=== PATIENT | female | born 1995 | race Caucasian/White ===

== ENCOUNTER 2017-02-04 14:42 | Emergency (ER) | payer OTHER ==
[2017-02-04 14:51] VITALS: O2SAT 97
--- NOTE | 2017-02-04 15:22 | EDPHY ---
H & P Stated Complaint: neck pain for a week, fever today at [facility], itchy last night Time Seen by Provider: 02/04/17 15:07 HPI/ROS: CHIEF COMPLAINT: Referred from [facility] for possible meningitis, neck pain, mild fever and viral syndrome HISTORY OF PRESENT ILLNESS: The patient is referred to the emergency department from [facility] for possible meningitis. The patient reports had a one-week history of neck pain. She awoke today with a mild frontal headache and fever. She denies significant cough. She does complain of mild sinus congestion and pressure. The patient denies significant past medical history. The patient denies any vomiting, diarrhea, urinary frequency or acute abdominal pain. The patient denies significant past medical history. She denies additional acute complaints. REVIEW OF SYSTEMS: A comprehensive 10 point review of systems is otherwise negative aside from elements mentioned in the history of present illness. Source: Patient Exam Limitations: No limitations - Personal History LMP (Females 10-55): 15-21 Days Ago Current Tetanus/Diphtheria Vaccine: Yes Current Tetanus Diphtheria and Acellular Pertussis (TDAP): Yes - Medical/Surgical History Hx Asthma: Yes Hx Chronic Respiratory Disease: No Hx Diabetes: No Hx Cardiac Disease: No Hx Renal Disease: No Hx Cirrhosis: No Hx Alcoholism: No Hx HIV/AIDS: No Hx Splenectomy or Spleen Trauma: No Other PMH: pmh:depression, bipolar, ptsd, asthma. psh:appy, tonsels, ankle reconst - Social History Smoking Status: Never smoked - Physical Exam Exam: General Appearance: Alert, no distress Eyes: Pupils equal and round no pallor or injection ENT, Mouth: Mucous membranes moist Respiratory: There are no retractions, lungs are clear to auscultation Cardiovascular: Regular rate and rhythm Gastrointestinal: Abdomen is soft and nontender, no masses, bowel sounds rayshawn , left CVA tenderness l Neurological: A&O, normal motor function, normal sensory exam, normal cranial nerves Skin: Warm and dry, no rashes Musculoskeletal: Neck is supple nontender, negative Kernig/Brudinski, no clinical evidence of meningitis Extremities: symmetrical, full range of motion Constitutional: Initial Vital Signs Temperature (C) 37.9 C 02/04/17 14:48 Heart Rate 113 H 02/04/17 14:48 Respiratory Rate 16 02/04/17 14:48 Blood Pressure 136/90 H 02/04/17 14:48 O2 Sat (%) 97 02/04/17 14:48 O2 Delivery Mode Room Air Allergies/Adverse Reactions: No Known Allergies Allergy (Unverified 02/04/17 14:47) Home Medications: Medication Instructions Recorded Bupropion HBr 02/04/17 Lamictal 02/04/17 Sprintec 28 Day Tablet 02/04/17 Medical Decision Making ED Course/Re-evaluation: The patient presents to the ED with a one-week history of some vague neck discomfort and a 1 day history of fever and headache. The patient is well- appearing in the emergency department. She has no meningeal symptoms per my evaluation. The patient has a normal neurologic examination. I doubt the patient has bacterial meningitis and do not feel that a lumbar puncture is indicated. The patient's urinalysis demonstrates no evidence of an infection. She does have atypical lymphocytes noted on her differential consistent with a likely underlying viral syndrome. The patient has no evidence of a vital sign abnormality. She is otherwise well- appearing. I feel it is appropriate to have her continue Tylenol and ibuprofen. The patient has been instructed to return to the ED for markedly worsening headache, fever or true neck stiffness. Differential Diagnosis: Differential diagnosis considered includes urinary tract infection, viral syndrome, influenza, meningitis - Data Points Laboratory Results: Laboratory Results 02/04/17 15:31 02/04/17 15:31 02/04/17 02/04/17 02/04/17 16:22 15:31 15:31 WBC 5.73 10^3/uL 10^3/uL (3.80-9.50) RBC 4.61 10^6/uL 10^6/uL (4.18-5.33) Hgb 14.6 g/dL g/dL (12.6-16.3) Hct 43.5 % % (38.0-47.0) MCV 94.4 fL fL (81.5-99.8) MCH 31.7 pg pg (27.9-34.1) MCHC 33.6 g/dL g/dL (32.4-36.7) RDW 11.6 % % (11.5-15.2) Plt Count 255 10^3/uL 10^3/uL (150-400) MPV 9.3 fL fL (8.7-11.7) Neut % (Auto) 47.2 % % (39.3-74.2) Lymph % (Auto) 36.6 % % (15.0-45.0) Dane % (Auto) 8.7 % % (4.5-13.0) Eos % (Auto) 5.9 % % (0.6-7.6) Baso % (Auto) 1.4 % % (0.3-1.7) Nucleat RBC Rel Count 0.0 % % (0.0-0.2) Absolute Neuts (auto) 2.70 10^3/uL 10^3/uL (1.70-6.50) Absolute Lymphs (auto) 2.10 10^3/uL 10^3/uL (1.00-3.00) Absolute Monos (auto) 0.50 10^3/uL 10^3/uL (0.30-0.80) Absolute Eos (auto) 0.34 10^3/uL 10^3/uL (0.03-0.40) Absolute Basos (auto) 0.08 10^3/uL 10^3/uL (0.02-0.10) Absolute Nucleated RBC 0.00 10^3/uL 10^3/uL (0-0.01) Immature Gran % 0.2 % % (0.0-1.1) Seg Neutrophils % 45 % % Band Neutrophils % 7 % % Lymphocytes % 37 % % Monocytes % 10 % % Eosinophils % 1 % % Immature Gran # 0.01 10^3/uL 10^3/uL (0.00-0.10) Absolute Seg Neuts 2.58 10^/uL 10^/uL (1.70-6.50) Absolute Band Neuts 0.40 10^3/uL 10^3/uL (0.00-0.70) Absolute Lymphocytes 2.12 10^3/uL 10^3/uL (1.00-3.00) Absolute Monocytes 0.57 10^3/uL 10^3/uL (0.30-0.80) Absolute Eosinophils 0.06 10^3/uL 10^3/uL (0.03-0.40) RBC/WBC/PLT Morphology NORMAL (NORMAL) Atypical Lymphocytes 2+ H Platelet Estimate ADEQUATE (ADEQ) Smear Review By Pending Sodium Potassium Chloride Carbon Dioxide Anion Gap BUN Creatinine Estimated GFR Glucose Calcium Urine Color PALE YELLOW Urine Appearance CLEAR Urine pH 6.0 (5.0-7.5) Ur Specific [place] 1.002 (1.002-1.030) Urine Protein NEGATIVE (NEGATIVE) Urine Ketones NEGATIVE (NEGATIVE) Urine Blood 1+ H (NEGATIVE) Urine Nitrate NEGATIVE (NEGATIVE) Urine Bilirubin NEGATIVE (NEGATIVE) Urine Urobilinogen NEGATIVE EU EU (0.2-1.0) Ur Leukocyte Esterase NEGATIVE (NEGATIVE) Urine RBC 15-25 /hpf H /hpf (0-3) Urine WBC NONE SEEN /hpf /hpf (0-3) Ur Epithelial Cells TRACE /lpf /lpf (NONE-1+) Urine Bacteria 1+ /hpf H /hpf (NONE SEEN) Urine Mucus TRACE /lpf /lpf (NONE-1+) Urine Glucose NEGATIVE (NEGATIVE) Nasal Influenza A PCR NEGATIVE FOR FLU A (NEGATIVE) Nasal Influenza B PCR NEGATIVE FOR FLU B (NEGATIVE) 02/04/17 15:31 WBC RBC Hgb Hct MCV MCH MCHC RDW Plt Count MPV Neut % (Auto) Lymph % (Auto) Dane % (Auto) Eos % (Auto) Baso % (Auto) Nucleat RBC Rel Count Absolute Neuts (auto) Absolute Lymphs (auto) Absolute Monos (auto) Absolute Eos (auto) Absolute Basos (auto) Absolute Nucleated RBC Immature Gran % Seg Neutrophils % Band Neutrophils % Lymphocytes % Monocytes % Eosinophils % Immature Gran # Absolute Seg Neuts Absolute Band Neuts Absolute Lymphocytes Absolute Monocytes Absolute Eosinophils RBC/WBC/PLT Morphology Atypical Lymphocytes Platelet Estimate Smear Review By Sodium 140 mEq/L mEq/L (134-144) Potassium 4.0 mEq/L mEq/L (3.5-5.2) Chloride 105 mEq/L mEq/L (97-110) Carbon Dioxide 22 mEq/l mEq/l (22-31) Anion Gap 13 mEq/L mEq/L (8-16) BUN 3 mg/dL L mg/dL (7-23) Creatinine 0.8 mg/dL mg/dL (0.6-1.0) Estimated GFR > 60 Glucose 94 mg/dL mg/dL (70-100) Calcium 9.4 mg/dL mg/dL (8.5-10.4) Urine Color Urine Appearance Urine pH Ur Specific [place] Urine Protein Urine Ketones Urine Blood Urine Nitrate Urine Bilirubin Urine Urobilinogen Ur Leukocyte Esterase Urine RBC Urine WBC Ur Epithelial Cells Urine Bacteria Urine Mucus Urine Glucose Nasal Influenza A PCR Nasal Influenza B PCR Departure - Departure Disposition: Home, Routine, Self-Care Clinical Impression: Viral syndrome Condition: Good Instructions: Viral Syndrome (ED) Additional Instructions: 1. Tylenol and ibuprofen as needed for pain. 2. Please return to the emergency department for worsening headache, fever, inability to flex or extend your neck or for the development of any acute neurologic symptoms. 3. Follow up with the [facility] as needed.
[2017-02-04 15:50] LABS: % IMMATURE GRANULYOCYTES 0.2 % (0.0-1.1); ABSOLUTE IMMATURE GRANULOCYTES 0.01 10^3/uL (0.00-0.10); ADD DIFF? NO; ADD MORPH? NO; ADD SCAN? YES; FRAGMENT RBC FLAG 0 (0-99); HEMATOCRIT 43.5 % (38.0-47.0); HEMOGLOBIN 14.6 g/dL (12.6-16.3); LEFT SHIFT FLG 0 (0-99); LIPEMIA HEMOLYSIS FLAG 80 (0-99); MEAN CELL HEMOGLOBIN 31.7 pg (27.9-34.1); MEAN CELL HEMOGLOBIN CONCENTR. 33.6 g/dL (32.4-36.7); MEAN CELL VOLUME 94.4 fL (81.5-99.8); MEAN PLATELET VOLUME 9.3 fL (8.7-11.7); PLATELET CLUMPS FLAG 0 (0-99); PLATELET COUNT 255 10^3/uL (150-400); RED BLOOD CELL COUNT 4.61 10^6/uL (4.18-5.33); RED CELL DISTRIBUTION WIDTH 11.6 % (11.5-15.2)
[2017-02-04 15:51] LABS: ATYPICAL LYMPHOCYTE FLAG 300 (0-99)
[2017-02-04 15:56] LABS: ANION GAP 13 mEq/L (8-16); CALCIUM 9.4 mg/dL (8.5-10.4); CARBON DIOXIDE 22 mEq/l (22-31); CHLORIDE 105 mEq/L (97-110); CREATININE 0.8 mg/dL (0.6-1.0); GLOMERULAR FILTRATION RATE > 60; GLUCOSE 94 mg/dL (70-100); SODIUM 140 mEq/L (134-144)
[2017-02-04 16:11] VITALS: BP 110/72; PULSE 95; RESP 15; TEMP 99
[2017-02-04 16:25] LABS: SCAN POSITIVE
[2017-02-04 16:29] LABS: PLATELET ESTIMATE ADEQUATE (ADEQ)
[2017-02-04 16:36] LABS: COLOR PALE YELLOW; LEUKOCYTE ESTERASE,URINE NEGATIVE (NEGATIVE); NITRITE,URINE NEGATIVE (NEGATIVE)
[2017-02-04 16:40] LABS: BACTERIA 1+ /hpf (NONE SEEN); MUCUS TRACE /lpf (NONE-1+); RBC,URINE 15-25 /hpf (0-3)
[2017-02-04 16:41] LABS: WBC,URINE NONE SEEN /hpf (0-3)
== END 2017-02-04 17:08 | disposition home or self-care (01) ==
DX: B34.9 Viral infection, unspecified (principal); J45.909 Unspecified asthma, uncomplicated

== ENCOUNTER 2017-02-07 10:31 | Inpatient (IN) | payer OTHER ==
[2017-02-07] MEDS ORDERED: ACETAMINOPHEN 500 MG TAB ONE (11:37)
[2017-02-07] MEDS ORDERED: ACETAMINOPHEN 160 MG/5 ML UDCUP PO ONE (11:43)
[2017-02-07] MEDS ORDERED: NS 1,000 ML IV ONE (11:44)
[2017-02-07] MEDS ORDERED: ACETAMINOPHEN 500 MG TAB PO ONE (11:45)
[2017-02-07 12:01] LABS: % IMMATURE GRANULYOCYTES 0.6 % (0.0-1.1); ADD DIFF? NO; ADD MORPH? NO; ADD SCAN? YES; FRAGMENT RBC FLAG 0 (0-99); LEFT SHIFT FLG 0 (0-99); LIPEMIA HEMOLYSIS FLAG 90 (0-99); MEAN CELL HEMOGLOBIN 32.6 pg (27.9-34.1); MEAN CELL VOLUME 93.1 fL (81.5-99.8); MEAN PLATELET VOLUME 9.2 fL (8.7-11.7); PLATELET CLUMPS FLAG 10 (0-99); PLATELET COUNT 267 10^3/uL (150-400); RED BLOOD CELL COUNT 4.51 10^6/uL (4.18-5.33); RED CELL DISTRIBUTION WIDTH 11.7 % (11.5-15.2)
[2017-02-07 12:02] LABS: ATYPICAL LYMPHOCYTE FLAG 300 (0-99)
[2017-02-07 12:05] LABS: HEMOGLOBIN 14.7 g/dL (12.6-16.3)
[2017-02-07 12:07] LABS: SCAN POSITIVE
--- NOTE | 2017-02-07 12:11 | EDPHY ---
HPI/HX/ROS/PE/MDM Narrative: CHIEF COMPLAINT: Fever, headache, rash. HISTORY OF PRESENT ILLNESS: This patient is a 21 year old female complaining of headache, neck pain, sore throat, and generalized rash worsening since Friday. Friday morning, she woke with a fever of 102 degrees and was evaluated at the [facility]. She was then evaluated here 02/04/17 for possible meningitis after referral from [facility]. That evening, she began to develop a generalized rash. Last night, she felt nauseous but was unable to vomit. She has been taking ibuprofen for fever, but has had ongoing headache, sore throat, neck pain, and fatigue. She denies any new medications or exposure to any new substances. No recent travel outside of [place] or to the [facility]. She has taken ibuprofen in the past without any reaction. Her primary complaint today is her worsening generalized rash, which spreads over her entire body. She denies chest pain, shortness of breath, palpitations, vomiting, diarrhea, or urinary complaints. REVIEW OF SYSTEMS: Aside from elements discussed in the HPI, a comprehensive 10-point review of systems was reviewed and is negative. PAST MEDICAL HISTORY: Depression (Buproprion), Bipolar (Lamictal), PTSD, Asthma , Appendectomy, Tonsillectomy, Ankle reconstruction SOCIAL HISTORY: Student at [employer]. Single. Nonsmoker. VITAL SIGNS: Reviewed by me GENERAL: Flushed. Well-developed, well-nourished, resting comfortably in no respiratory distress. HEENT: Atraumatic. Eyes: No icterus, no injection. Mouth: erythema, blistering, and lesions on inner lip and palate. moist mucous membranes. Neck: supple with no adenopathy. LUNGS: Clear to auscultation bilaterally, no wheezes, rhonchi or rales. CARDIAC: Regular tachycardia, no rubs, murmurs or gallops. ABDOMEN: Soft, nontender, nondistended, bowel sounds normal. BACK: No CVA tenderness. EXTREMITIES: No trauma. No edema. Range of motion is normal throughout. NEURO: Alert and oriented, grossly nonfocal. SKIN: Generalized urticarial rash. Warm and dry. PSYCHIATRIC: Normal mentation, no agitation. Portions of this note were transcribed by a medical geneticist. I personally performed a history, physical exam, medical decision making, and confirmed accuracy of information the transcribed note. ED Course: 21 year old female presents with fever, severe headache, and generalized urticarial rash. Procedure: Lumbar puncture. Indication: Fever, headache, rash After verbal informed consent from patient explaining the risks including infection, bleeding, and neurologic damage, a lumbar puncture was performed with 22 gauge needle after the patient was prepped and draped in the usual fashion. The back was anesthetized with 1% lidocaine. Approximately 4 cc of clear fluid was obtained. Opening pressure was not obtained. There were no complications. The procedure was performed by myself, Dr. Calero 13:47 Dr. Gutierrez, infectious disease specialist, at bedside to consult. 13:[address]. [address]. Gutierrez suspects viral syndrome over 14:19 Spoke with hospitalist service. - Data Points Laboratory Results: Laboratory Results 02/07/17 11:52 02/07/17 11:52 02/07/17 02/07/17 02/07/17 13:18 13:05 11:52 WBC RBC Hgb Hct MCV MCH MCHC RDW Plt Count MPV Neut % (Auto) Lymph % (Auto) Starke % (Auto) Eos % (Auto) Baso % (Auto) Nucleat RBC Rel Count Absolute Neuts (auto) Absolute Lymphs (auto) Absolute Monos (auto) Absolute Eos (auto) Absolute Basos (auto) Absolute Nucleated RBC Immature Gran % Seg Neutrophils % Band Neutrophils % Lymphocytes % Monocytes % Eosinophils % Immature Gran # Absolute Seg Neuts Absolute Band Neuts Absolute Lymphocytes Absolute Monocytes Absolute Eosinophils RBC/WBC/PLT Morphology Atypical Lymphocytes Platelet Estimate Smear Review By Sodium Potassium Chloride Carbon Dioxide Anion Gap BUN Creatinine Estimated GFR Glucose Calcium Total Bilirubin Pending Conjugated Bilirubin Pending Unconjugated Bilirubin Pending AST Pending ALT Pending Alkaline Phosphatase Pending Creatine Kinase Total Protein Pending Albumin Pending Beta HCG, Qual CSF Tube Number 4 1 CSF Appearance CLEAR CLEAR (CLEAR) (CLEAR) CSF Color COLORLESS COLORLESS (COLORLESS) (COLORLESS) CSF Supernatant Not Reported Not Reported CSF WBC 0 /mm3 /mm3 2 /mm3 /mm3 (0-5) (0-5) CSF RBC 10 /mm3 H /mm3 205 /mm3 H /mm3 (0-0) (0-0) CSF Glucose 44 mg/dL L mg/dL (50-75) CSF Total Protein 27 mg/dL mg/dL (12-60) Syphilis IgG Antibody CMV IgG Ab CMV IgM Ab EBV Capsid Ag IgG Ab EBV Capsid Ag IgM Ab EBV Nuclear Antigen Ab EBV Interpretation Monoscreen HIV 1&2 Antibody Group A Strep Screen 02/07/17 02/07/17 02/07/17 11:52 11:52 11:52 WBC RBC Hgb Hct MCV MCH MCHC RDW Plt Count MPV Neut % (Auto) Lymph % (Auto) Starke % (Auto) Eos % (Auto) Baso % (Auto) Nucleat RBC Rel Count Absolute Neuts (auto) Absolute Lymphs (auto) Absolute Monos (auto) Absolute Eos (auto) Absolute Basos (auto) Absolute Nucleated RBC Immature Gran % Seg Neutrophils % Band Neutrophils % Lymphocytes % Monocytes % Eosinophils % Immature Gran # Absolute Seg Neuts Absolute Band Neuts Absolute Lymphocytes Absolute Monocytes Absolute Eosinophils RBC/WBC/PLT Morphology Atypical Lymphocytes Platelet Estimate Smear Review By Sodium Potassium Chloride Carbon Dioxide Anion Gap BUN Creatinine Estimated GFR Glucose Calcium Total Bilirubin Conjugated Bilirubin Unconjugated Bilirubin AST ALT Alkaline Phosphatase Creatine Kinase Total Protein Albumin Beta HCG, Qual NEGATIVE CSF Tube Number CSF Appearance CSF Color CSF Supernatant CSF WBC CSF RBC CSF Glucose CSF Total Protein Syphilis IgG Antibody Pending CMV IgG Ab Pending CMV IgM Ab Pending EBV Capsid Ag IgG Ab Pending EBV Capsid Ag IgM Ab Pending EBV Nuclear Antigen Ab Pending EBV Interpretation Pending Monoscreen NEGATIVE (NEGATIVE) HIV 1&2 Antibody Pending Group A Strep Screen 02/07/17 02/07/17 02/07/17 11:52 11:52 11:35 WBC 16.19 10^3/uL H D 10^3/uL (3.80-9.50) RBC 4.51 10^6/uL 10^6/uL (4.18-5.33) Hgb 14.7 g/dL g/dL (12.6-16.3) Hct 42.0 % % (38.0-47.0) MCV 93.1 fL fL (81.5-99.8) MCH 32.6 pg pg (27.9-34.1) MCHC 35.0 g/dL g/dL (32.4-36.7) RDW 11.7 % % (11.5-15.2) Plt Count 267 10^3/uL 10^3/uL (150-400) MPV 9.2 fL fL (8.7-11.7) Neut % (Auto) 27.9 % L % (39.3-74.2) Lymph % (Auto) 54.7 % H % (15.0-45.0) Starke % (Auto) 11.4 % % (4.5-13.0) Eos % (Auto) 4.0 % % (0.6-7.6) Baso % (Auto) 1.4 % % (0.3-1.7) Nucleat RBC Rel Count 0.0 % % (0.0-0.2) Absolute Neuts (auto) 4.52 10^3/uL 10^3/uL (1.70-6.50) Absolute Lymphs (auto) 8.86 10^3/uL H 10^3/uL (1.00-3.00) Absolute Monos (auto) 1.85 10^3/uL H 10^3/uL (0.30-0.80) Absolute Eos (auto) 0.64 10^3/uL H 10^3/uL (0.03-0.40) Absolute Basos (auto) 0.22 10^3/uL H 10^3/uL (0.02-0.10) Absolute Nucleated RBC 0.00 10^3/uL 10^3/uL (0-0.01) Immature Gran % 0.6 % % (0.0-1.1) Seg Neutrophils % 29 % % Band Neutrophils % 4 % % Lymphocytes % 63 % % Monocytes % 2 % % Eosinophils % 2 % % Immature Gran # 0.10 10^3/uL 10^3/uL (0.00-0.10) Absolute Seg Neuts 4.70 10^/uL 10^/uL (1.70-6.50) Absolute Band Neuts 0.65 10^3/uL 10^3/uL (0.00-0.70) Absolute Lymphocytes 10.20 10^3/uL H 10^3/uL (1.00-3.00) Absolute Monocytes 0.32 10^3/uL 10^3/uL (0.30-0.80) Absolute Eosinophils 0.32 10^3/uL 10^3/uL (0.03-0.40) RBC/WBC/PLT Morphology NORMAL (NORMAL) Atypical Lymphocytes 2+ H Platelet Estimate ADEQUATE (ADEQ) Smear Review By Pending Sodium 139 mEq/L mEq/L (134-144) Potassium 3.8 mEq/L mEq/L (3.5-5.2) Chloride 104 mEq/L mEq/L (97-110) Carbon Dioxide 23 mEq/l mEq/l (22-31) Anion Gap 12 mEq/L mEq/L (8-16) BUN 6 mg/dL L mg/dL (7-23) Creatinine 0.8 mg/dL mg/dL (0.6-1.0) Estimated GFR > 60 Glucose 80 mg/dL mg/dL (70-100) Calcium 8.7 mg/dL mg/dL (8.5-10.4) Total Bilirubin Conjugated Bilirubin Unconjugated Bilirubin AST ALT Alkaline Phosphatase Creatine Kinase 53 IU/L IU/L (0-156) Total Protein Albumin Beta HCG, Qual CSF Tube Number CSF Appearance CSF Color CSF Supernatant CSF WBC CSF RBC CSF Glucose CSF Total Protein Syphilis IgG Antibody CMV IgG Ab CMV IgM Ab EBV Capsid Ag IgG Ab EBV Capsid Ag IgM Ab EBV Nuclear Antigen Ab EBV Interpretation Monoscreen HIV 1&2 Antibody Group A Strep Screen NEGATIVE (NEGATIVE) Medications Given: Discontinued Medications Acetaminophen (Tylenol 160mg/5ml Oral Liquid) 1,000 mg PO EDNOW ONE Stop: 02/07/17 11:44 Last Admin: 02/07/17 11:45 Dose: Not Given Acetaminophen (Tylenol) 1,000 mg PO EDNOW ONE Stop: 02/07/17 11:46 Last Admin: 02/07/17 11:46 Dose: 1,000 mg Diphenhydramine HCl (Benadryl) 25 mg PO EDNOW ONE Stop: 02/07/17 12:25 Last Admin: 02/07/17 12:35 Dose: 25 mg Hydromorphone HCl (Dilaudid) 0.5 mg IVP EDNOW ONE Stop: 02/07/17 12:17 Last Admin: 02/07/17 12:35 Dose: 0.5 mg Sodium Chloride (Ns) 1,000 mls @ 0 mls/hr IV ONCE ONE; Wide Open PRN Reason: Protocol Stop: 02/07/17 11:45 Last Admin: 02/07/17 11:44 Dose: 1,000 mls Microbiology Results: MICROBIOLOGY 02/07/17 13:05 Cerebral Spinal Fluid Gram Stain - Final General Time Seen by Provider: 02/07/17 11:27 Initial Vital Signs: Initial Vital Signs Temperature (C) 39.3 C H 02/07/17 10:49 Heart Rate 119 H 02/07/17 10:49 Respiratory Rate 17 02/07/17 10:49 Blood Pressure 127/80 H 02/07/17 10:49 O2 Sat (%) 94 02/07/17 10:49 O2 Delivery Mode Room Air Allergies/Adverse Reactions: No Known Allergies Allergy (Unverified 02/04/17 14:47) Home Medications: Medication Instructions Recorded Bupropion HBr 02/04/17 Lamictal 02/04/17 Sprintec 28 Day Tablet 02/04/17 Departure - Departure
[2017-02-07] MEDS ORDERED: HYDROmorphONE/DILAUDID 1 MG/ML INJ IVP ONE (12:16)
[2017-02-07 12:19] LABS: ANION GAP 12 mEq/L (8-16); CALCIUM 8.7 mg/dL (8.5-10.4); CARBON DIOXIDE 23 mEq/l (22-31); CHLORIDE 104 mEq/L (97-110); CREATININE 0.8 mg/dL (0.6-1.0); GLOMERULAR FILTRATION RATE > 60; GLUCOSE 80 mg/dL (70-100); POTASSIUM 3.8 mEq/L (3.5-5.2); SODIUM 139 mEq/L (134-144)
[2017-02-07] MEDS ORDERED: diphenhydrAMINE 25 MG CAP PO ONE (12:24)
[2017-02-07 12:26] LABS: BHCG-QUALITATIVE NEGATIVE; MONO TEST NEGATIVE (NEGATIVE)
[2017-02-07 12:43] LABS: PLATELET ESTIMATE ADEQUATE (ADEQ)
[2017-02-07 13:32] LABS: CSF APPEARANCE CLEAR (CLEAR); CSF COLOR COLORLESS (COLORLESS)
[2017-02-07 13:32] LABS: CSF APPEARANCE CLEAR (CLEAR); CSF COLOR COLORLESS (COLORLESS); PROTEIN, CSF 27 mg/dL (12-60)
[2017-02-07 13:42] LABS: WBC, CSF 2 /mm3 (0-5)
[2017-02-07 13:50] LABS: WBC, CSF 0 /mm3 (0-5)
[2017-02-07 14:19] LABS: ALBUMIN 3.6 g/dL (3.5-5.0); BILIRUBIN,TOTAL 0.9 mg/dL (0.1-1.4); BILIRUBIN-CONJUGATED 0.7 mg/dL (0.0-0.5); BILIRUBIN-UNCONJUGATED 0.2 mg/dL (0.0-1.1); TOTAL PROTEIN 5.8 g/dL (6.3-8.2)
[2017-02-07] MEDS ORDERED: ALBUTEROL 3 ML DEYVIAL IH PRN (15:02)
[2017-02-07] MEDS ORDERED: oxyCODONE IR 5 MG TAB PO PRN (15:02)
--- NOTE | 2017-02-07 15:08 | PDGENHP ---
History and Physical - Chief Complaint Rash, Fever, PALACIOS - History of Present Illness 21 year old female p/w headache, neck pain, sore throat, and generalized rash worsening since Friday. Friday morning, she woke with a fever of 102 degrees and was evaluated at the [employer] student [facility]. She was then evaluated here 02/04/17 for possible meningitis after referral from [facility]. That evening, she began to develop a generalized rash. Last night, she felt nauseous but was unable to vomit. She has been taking ibuprofen for fever, but has had ongoing headache, sore throat, neck pain, and fatigue. She denies any new medications or exposure to any new substances. No recent travel outside of [place] or to the [facility]. She has taken ibuprofen in the past without any reaction. Her primary complaint today is her worsening generalized rash, which spreads over her entire body. She denies chest pain, shortness of breath, palpitations, vomiting, diarrhea, or urinary complaints. She started Lamictal 5 weeks ago. There was concern for SJS and ID was consulted. At this time, they believe that the etiology is likely a viral syndrome. She is being admitted for further w/u and management. A LP in the E.D. is negative. Cultures pending. She is hemodynamically stable. She has Leukocytosis PAST MEDICAL /SURGICAL HISTORY: Depression (Buproprion), Bipolar (Lamictal), PTSD, Asthma, Appendectomy, Tonsillectomy, Ankle reconstruction SOCIAL HISTORY: Student at [employer]. Single. Nonsmoker. FMX: AL History Information - Allergies/Home Medication List Allergies/Adverse Reactions: No Known Allergies Allergy (Unverified 02/04/17 14:47) Home Medications: Norgestimate-Ethinyl Estradiol [Sprintec] 1 each PO DAILY 02/04/17 [Last Taken Unknown] buPROPion SR [Wellbutrin 150mg SR (*)] 150 mg PO BID 02/04/17 [Last Taken ] lamoTRIgine [LamICTAL 100 MG (*)] 150 mg PO HS 02/04/17 [Last Taken 02/06/17] Albuterol [Proventil Inhaler HFA (*)] 1 - 2 puffs IH DAILY PRN 02/07/17 [Last Taken 3 Days Ago ~02/04/17] I have personally reviewed and updated: medical history, social history, surgical history - Social History Smoking Status: Never smoked Review of Systems Review of Systems: ROS: 10pt was reviewed & negative except for what was stated in HPI & below Physical Exam Physical Exam: Temp Pulse Resp BP Pulse Ox 39.3 C H 100 16 110/79 98 02/07/17 10:49 02/07/17 14:00 02/07/17 14:00 02/07/17 12:00 02/07/17 14:00 Constitutional: no apparent distress Eyes: PERRL Ears, Nose, Mouth, Throat: moist mucous membranes, hearing normal, oral ulcer ( erythema, blistering, and lesions on inner lip and palate. moist mucous membranes) Cardiovascular: regular rate and rhythym, no murmur, rub, or gallop, No edema Respiratory: no respiratory distress, no rales or rhonchi, clear to auscultation Skin: erythema, rash (ERYTHEMATOUS RASH INVOLVING BACK, TRUNK, THIGHS) Musculoskeletal: full muscle strength Neurologic: AAOx3 Psychiatric: interacting appropriately, not anxious, not encephalopathic Lab Data & Imaging Review 02/07/17 11:52 02/07/17 11:52 WBC 16.19 10^3/uL (3.80-9.50) H D 02/07/17 11:52 RBC 4.51 10^6/uL (4.18-5.33) 02/07/17 11:52 Hgb 14.7 g/dL (12.6-16.3) 02/07/17 11:52 Hct 42.0 % (38.0-47.0) 02/07/17 11:52 MCV 93.1 fL (81.5-99.8) 02/07/17 11:52 MCH 32.6 pg (27.9-34.1) 02/07/17 11:52 MCHC 35.0 g/dL (32.4-36.7) 02/07/17 11:52 RDW 11.7 % (11.5-15.2) 02/07/17 11:52 Plt Count 267 10^3/uL (150-400) 02/07/17 11:52 MPV 9.2 fL (8.7-11.7) 02/07/17 11:52 Neut % (Auto) 27.9 % (39.3-74.2) L 02/07/17 11:52 Lymph % (Auto) 54.7 % (15.0-45.0) H 02/07/17 11:52 Ramsey % (Auto) 11.4 % (4.5-13.0) 02/07/17 11:52 Eos % (Auto) 4.0 % (0.6-7.6) 02/07/17 11:52 Baso % (Auto) 1.4 % (0.3-1.7) 02/07/17 11:52 Nucleat RBC Rel Count 0.0 % (0.0-0.2) 02/07/17 11:52 Absolute Neuts (auto) 4.52 10^3/uL (1.70-6.50) 02/07/17 11:52 Absolute Lymphs (auto) 8.86 10^3/uL (1.00-3.00) H 02/07/17 11:52 Absolute Monos (auto) 1.85 10^3/uL (0.30-0.80) H 02/07/17 11:52 Absolute Eos (auto) 0.64 10^3/uL (0.03-0.40) H 02/07/17 11:52 Absolute Basos (auto) 0.22 10^3/uL (0.02-0.10) H 02/07/17 11:52 Absolute Nucleated RBC 0.00 10^3/uL (0-0.01) 02/07/17 11:52 Immature Gran % 0.6 % (0.0-1.1) 02/07/17 11:52 Seg Neutrophils % 29 % 02/07/17 11:52 Band Neutrophils % 4 % 02/07/17 11:52 Lymphocytes % 63 % 02/07/17 11:52 Monocytes % 2 % 02/07/17 11:52 Eosinophils % 2 % 02/07/17 11:52 Immature Gran # 0.10 10^3/uL (0.00-0.10) 02/07/17 11:52 Absolute Seg Neuts 4.70 10^/uL (1.70-6.50) 02/07/17 11:52 Absolute Band Neuts 0.65 10^3/uL (0.00-0.70) 02/07/17 11:52 Absolute Lymphocytes 10.20 10^3/uL (1.00-3.00) H 02/07/17 11:52 Absolute Monocytes 0.32 10^3/uL (0.30-0.80) 02/07/17 11:52 Absolute Eosinophils 0.32 10^3/uL (0.03-0.40) 02/07/17 11:52 RBC/WBC/PLT Morphology NORMAL (NORMAL) 02/07/17 11:52 Atypical Lymphocytes 2+ H 02/07/17 11:52 Platelet Estimate ADEQUATE (ADEQ) 02/07/17 11:52 Sodium 139 mEq/L (134-144) 02/07/17 11:52 Potassium 3.8 mEq/L (3.5-5.2) 02/07/17 11:52 Chloride 104 mEq/L (97-110) 02/07/17 11:52 Carbon Dioxide 23 mEq/l (22-31) 02/07/17 11:52 Anion Gap 12 mEq/L (8-16) 02/07/17 11:52 BUN 6 mg/dL (7-23) L 02/07/17 11:52 Creatinine 0.8 mg/dL (0.6-1.0) 02/07/17 11:52 Estimated GFR > 60 02/07/17 11:52 Glucose 80 mg/dL (70-100) 02/07/17 11:52 Calcium 8.7 mg/dL (8.5-10.4) 02/07/17 11:52 Total Bilirubin 0.9 mg/dL (0.1-1.4) 02/07/17 11:52 Conjugated Bilirubin 0.7 mg/dL (0.0-0.5) H 02/07/17 11:52 Unconjugated Bilirubin 0.2 mg/dL (0.0-1.1) 02/07/17 11:52 AST 121 IU/L (14-46) H 02/07/17 11:52 ALT 109 IU/L (9-52) H 02/07/17 11:52 Alkaline Phosphatase 223 IU/L (38-126) H 02/07/17 11:52 Creatine Kinase 53 IU/L (0-156) 02/07/17 11:52 Total Protein 5.8 g/dL (6.3-8.2) L 02/07/17 11:52 Albumin 3.6 g/dL (3.5-5.0) 02/07/17 11:52 Beta HCG, Qual NEGATIVE 02/07/17 11:52 CSF Tube Number 4 02/07/17 13:18 CSF Appearance CLEAR (CLEAR) 02/07/17 13:18 CSF Color COLORLESS (COLORLESS) 02/07/17 13:18 CSF Supernatant Not Reported 02/07/17 13:18 CSF WBC 0 /mm3 (0-5) 02/07/17 13:18 CSF RBC 10 /mm3 (0-0) H 02/07/17 13:18 CSF Glucose 44 mg/dL (50-75) L 02/07/17 13:05 CSF Total Protein 27 mg/dL (12-60) 02/07/17 13:05 Monoscreen NEGATIVE (NEGATIVE) 02/07/17 11:52 Group A Strep Screen NEGATIVE (NEGATIVE) 02/07/17 11:35 Assessment & Plan Assessment: #Leukocytosis #Rash #Fever #Mouth Ulcers #Transaminitis #?viral syndrome vs drug reaction vs other Plan admit hold lamictal repeat labs in am. f/u cultures, viral studies symptom management ID is following: no abx at this time. No steroids at this time SCD's Full Code
[2017-02-07] MEDS: NS 1,000 ML IV SCH (15:30)
[2017-02-07] MEDS: ONDANSETRON DISINTEGRATING 4 MG TAB PO PRN (15:40)
--- NOTE | 2017-02-07 16:06 | ASMTCMCOM ---
CM Note CM Note Notes: Pt has been admitted with fever, rash, PALACIOS, neck pain. ID following. Cultures are pending. Pt is a [employer] student and has a hx of Bipolar d/o, PTSD, depression. Currently not on any ABX. Anticipate d/c with no CM needs but CM will continue to follow for any unanticipated needs. Date Signed: 02/07/2017 04:05 PM Electronically Signed By:TOSHIA Frye
--- NOTE | 2017-02-07 19:05 | PDMN ---
Medical Necessity Medical necessity: C/M review: Patient meets INPT criteria under [facility] M-160 Sepsis and other febrile illness without focal infection; Acute and persistently worsening febrile illness possible viral syndrome, drug reaction or unclear etiology, 39.3 T max, generalized rash, headache, neck pain, mouth ulcers, leukocytosis, WBC 16.19, Creatine kinase 5.8, transaminitis, AST 121, ALT 109, Alk phos 223, requiring Infectious disease consult, ongoing hold IV fluids, monitoring and workup, comorbid 02/04/2017 ED visit for possible meningitis. anticipates > 2 MN LOS for ongoing med nec for eval and TX of above.
[2017-02-07] MEDS: ACETAMINOPHEN 325 MG TAB PO PRN (19:15)
[2017-02-07] MEDS: diphenhydrAMINE 25 MG CAP PO PRN (19:16)
--- NOTE | 2017-02-07 20:29 | GCON ---
[f rep st] CONSULTATION INFECTIOUS DISEASE CONSULTATION. PHYSICIAN REQUESTING CONSULTATION: Liz Calero M.D. REASON FOR CONSULTATION: Rash and fever and headache. HISTORY OF PRESENT ILLNESS: A 21-year-old woman with a past medical history of bipolar disorder who presents to the emergency room for the 2nd time with complaints of headache and fever and subsequently developed a rash in the interim on 02/06/2017. She was last evaluated in our emergency room 02/04/2017 for possible meningitis, but lumbar puncture was not performed as she was suspected to simply have a viral syndrome. She re-presented today after the development of her rash. She has been taking ibuprofen for her fever, but not much more than she typically takes. She also has a headache and sore throat, a very mildly sore neck, but no stiffness. She denies any oral or genital pain. She is sexually active with unprotected sex with her boyfriend. She denies any recent travel or exposure to arthropods. Interestingly, patient started Lamictal in mid-December and there was initial concern for Cohn-Faisal syndrome in the emergency room. In the emergency room, a lumbar puncture was performed which showed no evidence of meningitis, with a negative WBC, slightly low glucose and a normal protein. It was a traumatic tap. Blood pressure was within normal limits throughout ER visit, and she had mild tachycardia and a T-max of 39.3. PAST MEDICAL AND SURGICAL HISTORY: She has depression and bipolar type 2 and is managed on bupropion and Lamictal. She has PTSD, asthma, appendectomy, tonsillectomy, and ankle reconstruction. History of "mono" in the past. 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 Her family currently lives in [place]. FAMILY HISTORY: Reviewed and noncontributory. ALLERGIES: NKDA. MEDICATIONS: She is on Sprintec 1 tablet daily, Wellbutrin 150 slow release twice daily, Lamictal 150 mg at bedtime, albuterol as needed. SOCIAL HISTORY: She is a nonsmoker. No alcohol. She has a boyfriend. They are sexually active. She is on control pills. She has never had STD testing in the past. REVIEW OF SYSTEMS: A complete 10-point review of systems was performed and is negative except as mentioned in the HPI. PHYSICAL EXAMINATION: VITAL SIGNS: T-max 39.3, pulse 100, respiratory rate 16 , blood pressure 110/79, saturations 98% on room air. GENERAL: This is a pleasant young woman sitting up in bed with fluent speech. No acute distress. HEENT: Patient with reactive pupils bilaterally. No splinter hemorrhages or Janeway lesions. No conjunctival lesions around the eyes. Oropharynx: She has moist mucous membranes. She has a small ulcer on her inner lip and petechial eruption on her palate. Moist mucous membranes with good dentition. CARDIOVASCULAR: She is mildly tachycardic. Regular rate. No murmur. CHEST: Clear to auscultation bilaterally. SKIN: The patient has a diffuse maculopapular rash most prominent on her trunk, but also involving her arms and legs that it is blanching and nonpruritic. ABDOMEN: Soft, nontender. Bowel sounds are present. Spleen was not palpable. NEUROLOGIC: Alert, oriented x4. Moving all 4 extremities equally. PSYCHIATRIC: She is interacting appropriately. Alert and oriented x4. LABORATORY: CSF tube 4: 0 WBCs, 10 RBCs, glucose 44, total protein 27. White count 16,000, 27% neutrophils, 54% lymphocytes. Creatinine is 0.8, AST 121, ALT 109, alkaline phosphatase 223, total protein 2.8. Beta HCG negative. Albumin 3.6. Rhea screen negative. HIV screen negative. Group A strep screen negative. No imaging was performed. ASSESSMENT AND PLAN: This is a 21-year-old woman who presents with fever, headache, macular papular eruption with some petechiae on her palate with associated normal lumbar puncture and lymphocytosis and mild hepatitis, most suggestive of viral syndrome, consistent with mono-like illness. Would consider EBV, CMV, enterovirus. Less likely could consider primary HIV, although if highly suspicious would need to send PCR and I am not at this point. 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 Do not feel the character of her rash and minor oral lesions are consistent with Cohn-Faisal syndrome. Nonetheless, would hold Lamictal while continue to assess. Hold antibiotic therapy and would monitor overnight in the hospital. Sent Resp Panel PCR, EBV, CMV serologies, HIV and syphilis IgG. Time was 75 minutes with greater than 50% of time spent with education and counseling regarding differential diagnosis of fever, rash, headache, lack of meningitis and likely etiology of viral syndrome. Also ordered a respiratory panel, PCR, nasal swab as determining specific viral etiology will help exclude , provide reassurance for ongoing therapy with Lamictal in the long run. Education provided to patient and to mother over the phone. Thank you for this consultation. We will continue to follow on a daily basis. /[id number]/MODL MTDD
[2017-02-07] MEDS: buPROPion SR 150 MG TAB PO SCH (22:35)
[2017-02-08] MEDS ORDERED: hydrOXYzine HCL 25 MG TAB PO PRN (00:09)
[2017-02-08] MEDS: LORazepam 0.5 MG TAB PO PRN ×2 (00:21→22:00)
[2017-02-08] MEDS: ACETAMINOPHEN 325 MG TAB PO PRN ×3 (04:34→13:56)
[2017-02-08] MEDS: NS 1,000 ML IV SCH ×2 (04:36→19:41)
[2017-02-08 05:11] LABS: ADD MORPH? NO; ADD SCAN? YES; FRAGMENT RBC FLAG 0 (0-99); HEMATOCRIT 39.1 % (38.0-47.0); HEMOGLOBIN 13.1 g/dL (12.6-16.3); LEFT SHIFT FLG 0 (0-99); LIPEMIA HEMOLYSIS FLAG 80 (0-99); MEAN CELL HEMOGLOBIN 31.9 pg (27.9-34.1); MEAN CELL HEMOGLOBIN CONCENTR. 33.5 g/dL (32.4-36.7); MEAN CELL VOLUME 95.1 fL (81.5-99.8); MEAN PLATELET VOLUME 9.7 fL (8.7-11.7); PLATELET CLUMPS FLAG 0 (0-99); PLATELET COUNT 244 10^3/uL (150-400); RED BLOOD CELL COUNT 4.11 10^6/uL (4.18-5.33); RED CELL DISTRIBUTION WIDTH 11.9 % (11.5-15.2)
[2017-02-08 05:12] LABS: ATYPICAL LYMPHOCYTE FLAG 300 (0-99)
[2017-02-08 05:32] LABS: ADD DIFF? YES; SCAN POSITIVE
[2017-02-08 05:34] LABS: ALANINE AMINOTRANSFERASE 97 IU/L (9-52); ALBUMIN 2.7 g/dL (3.5-5.0); ALKALINE PHOSPHATASE 182 IU/L (38-126); ANION GAP 8 mEq/L (8-16); ASPARTATE AMINOTRANSFERASE 102 IU/L (14-46); BILIRUBIN,TOTAL 0.8 mg/dL (0.1-1.4); CALCIUM 8.2 mg/dL (8.5-10.4); CARBON DIOXIDE 26 mEq/l (22-31); CHLORIDE 104 mEq/L (97-110); CREATININE 0.8 mg/dL (0.6-1.0); GLOMERULAR FILTRATION RATE > 60; GLUCOSE 83 mg/dL (70-100); MAGNESIUM 1.7 mg/dL (1.6-2.3); POTASSIUM 4.4 mEq/L (3.5-5.2); SODIUM 138 mEq/L (134-144); TOTAL PROTEIN 5.2 g/dL (6.3-8.2)
[2017-02-08 05:39] LABS: PLATELET ESTIMATE ADEQUATE (ADEQ)
[2017-02-08] MEDS: buPROPion SR 150 MG TAB PO SCH ×2 (07:52→20:33)
[2017-02-08] MEDS: diphenhydrAMINE 25 MG CAP PO PRN ×2 (07:52→21:20)
[2017-02-08] MEDS: Norgestimate-Ethinyl Estradiol [Sprintec 28 Day Tablet] PO SCH (10:38)
--- NOTE | 2017-02-08 12:12 | PCMIDPN ---
Assessment/Plan: Assessment/Plan: 1. Fever, sorethroat, rash, headaches: -worsening rash today not unexpected. no evolutin to blisters, bullae, or desquamation -LFt's better and wbc improving -no eye involvement -d/d viral vs drug related possibly to Lamictal -continue close observation - called and spoke with mom/dad, discussed care at length. -EBV,CMV, syphillis pending -hiv neg Subjective: intermittent spiking temps. rash more confluent today compared to yesterday. denies sob, throat swelling. no blisters or areas of desquamation. denies diarrhea. Objective: Vital Signs Temp Pulse Resp BP Pulse Ox 37.1 C 103 H 12 110/66 96 02/08/17 12:00 02/08/17 12:00 02/08/17 12:00 02/08/17 12:00 02/08/17 12:00 Microbiology 02/07/17 17:00 Respiratory Panel (PCR) - Final Nasal, Sinus - Swab No Organism Detected Laboratory Results 02/08/17 04:13 02/08/17 04:13 02/07/17 02/08/17 02/09/17 05:59 05:59 05:59 Intake Total 1661 Output Total 31 Balance 1630 - Physical Exam General Appearance: alert, no apparent distress EENT: other (posterio pharyngeal petechia noted. no desquamation noted. no oral ulcers.), No thrush Respiratory: lungs clear Cardiac/Chest: regular rate, rhythm Extremities: No swelling Abdomen: normal bowel sounds, non-tender, soft, No distended Skin: rash (face, chest, abd, back, legs. confluent now. no blisters, bullae, vesicles, desquamtion. ) - Time Spent With Patient Time Spent with Patient: greater than 35 minutes Time Spent with Patient: Greater than 35 minutes spent on this patients care, greater than 50% of time spent counseling, educating, and coordinating care regarding the above mentioned plan. ICD10 Worksheet Patient Problems: Problems Problem Status Onset Viral syndrome Acute
--- NOTE | 2017-02-08 14:02 | HOSPPROG ---
Hospitalist Progress Note Assessment/Plan: 21 yo F with PMH of bipolar 2 disorder presenting with rash and fever # diffuse maculopapular rash: with some involvement of oral mucosa and at this point differential including viral syndrome versus drug rash or Cohn Faisal syndrome. Rash appears to be more confluent today than yesterday, however oral lesions stable. Will continue benadryl for pruritis, will continue to monitor overnight. Did have LP to r/o meningitis and respiratory viral panel is negative. Have dc'ed lamictal and would likely recommend that she not begin this again. # leukocytosis: in setting of above, viral syndrome versus stress response, improving # bipolar 2/depression/ptsd: recently started on lamictal (5 weeks ago), as above lamictal discontinued, doing well currently # IP status Patient new to my care. Old records reviewed and summarized as above. Care plan reviewed with ID including plans to monitor again overnight. Subjective: no acute overnight events, she states she feels 'horrible', notes the rash is spreading, no new lesions in her mouth Objective: Vital Signs Temp Pulse Resp BP Pulse Ox 37.1 C 103 H 12 110/66 96 02/08/17 12:00 02/08/17 12:00 02/08/17 12:00 02/08/17 12:00 02/08/17 12:00 Microbiology 02/07/17 17:00 Respiratory Panel (PCR) - Final Nasal, Sinus - Swab No Organism Detected Laboratory Results 02/08/17 04:13 02/08/17 04:13 02/07/17 02/08/17 02/09/17 05:59 05:59 05:59 Intake Total 1661 Output Total 31 Balance 1630 awake alert nad anicteric posterior pharyngeal erythema, several small lesions adjacent to the gums below lower lip mildly tachy, regular, no mrg cta b soft nt nd no cce warm dry diffuse confluent maculopapular rash covering whole body oriented appropriate - Time Spent With Patient Time Spent with Patient: greater than 35 minutes Time Spent with Patient: Greater than 35 minutes spent on this patients care, greater than 50% of time spent counseling, educating, and coordinating care regarding the above mentioned plan. ICD10 Worksheet Patient Problems: Problems Problem Status Onset Viral syndrome Acute
[2017-02-08] MEDS: ONDANSETRON 4 MG/2 ML VIAL IVP PRN (14:07)
[2017-02-08] MEDS ORDERED: LORazepam 2 MG/ML INJ IVP ONE (15:50)
[2017-02-08] MEDS ORDERED: ALTEPLASE 2 MG VIAL IVP PRN (17:50)
[2017-02-08] MEDS ORDERED: IOPAMIDOL (ISOVUE-M 300) 15 ML VIAL ONE (18:24)
[2017-02-08] MEDS: IBUPROFEN 200 MG TAB PO PRN (19:41)
[2017-02-09] MEDS: NS 1,000 ML IV SCH ×2 (05:05→16:30)
[2017-02-09 06:20] LABS: ADD MORPH? NO; ADD SCAN? YES; FRAGMENT RBC FLAG 0 (0-99); HEMATOCRIT 36.8 % (38.0-47.0); HEMOGLOBIN 12.3 g/dL (12.6-16.3); LEFT SHIFT FLG 0 (0-99); LIPEMIA HEMOLYSIS FLAG 80 (0-99); MEAN CELL HEMOGLOBIN 31.7 pg (27.9-34.1); MEAN CELL HEMOGLOBIN CONCENTR. 33.4 g/dL (32.4-36.7); MEAN CELL VOLUME 94.8 fL (81.5-99.8); MEAN PLATELET VOLUME 9.2 fL (8.7-11.7); PLATELET CLUMPS FLAG 10 (0-99); PLATELET COUNT 233 10^3/uL (150-400); RED BLOOD CELL COUNT 3.88 10^6/uL (4.18-5.33); RED CELL DISTRIBUTION WIDTH 11.9 % (11.5-15.2)
[2017-02-09 06:22] LABS: ATYPICAL LYMPHOCYTE FLAG 300 (0-99)
[2017-02-09 06:27] LABS: ALANINE AMINOTRANSFERASE 87 IU/L (9-52); ALBUMIN 2.3 g/dL (3.5-5.0); ALKALINE PHOSPHATASE 167 IU/L (38-126); ANION GAP 5 mEq/L (8-16); ASPARTATE AMINOTRANSFERASE 74 IU/L (14-46); BILIRUBIN,TOTAL 0.5 mg/dL (0.1-1.4); CALCIUM 8.1 mg/dL (8.5-10.4); CARBON DIOXIDE 29 mEq/l (22-31); CHLORIDE 106 mEq/L (97-110); CREATININE 0.7 mg/dL (0.6-1.0); GLOMERULAR FILTRATION RATE > 60; GLUCOSE 82 mg/dL (70-100); POTASSIUM 3.8 mEq/L (3.5-5.2); SODIUM 140 mEq/L (134-144); TOTAL PROTEIN 4.5 g/dL (6.3-8.2)
[2017-02-09 06:59] LABS: ADD DIFF? YES; SCAN POSITIVE
[2017-02-09 07:03] LABS: PLATELET ESTIMATE ADEQUATE (ADEQ)
[2017-02-09] MEDS: buPROPion SR 150 MG TAB PO SCH ×2 (09:08→20:00)
[2017-02-09] MEDS: Norgestimate-Ethinyl Estradiol [Sprintec 28 Day Tablet] PO SCH (09:12)
[2017-02-09 10:20] LABS: ANTI EBNA Positive (Negative); ANTI VCA/IgG Positive (Negative); ANTI VCA/IgM Negative (Negative)
[2017-02-09] MEDS: ACETAMINOPHEN 325 MG TAB PO PRN (10:39)
[2017-02-09] MEDS: IBUPROFEN 200 MG TAB PO PRN ×2 (11:39→20:00)
--- NOTE | 2017-02-09 13:56 | HOSPPROG ---
Hospitalist Progress Note Assessment/Plan: 21 yo F with PMH of bipolar 2 disorder presenting with rash and fever # diffuse maculopapular rash: with some involvement of oral mucosa and at this point differential including viral syndrome versus drug rash or less likely Cohn Faisal syndrome--no bullae or areas of desquamation etc. Rash improved slightly overnight, oral lesions also improved. # PALACIOS/n/v: suspect csf leak in setting of recent LP, blood patch applied yesterday with improved sxs # fever: continues to have low grade fevers intermittently, in setting of likely viral illness as abve # leukocytosis: in setting of above, viral syndrome versus stress response, remains elevated but better than on arrival # transaminitis: slight elevation in lfts improving since arrival, suspect related to viral syndrome # bipolar 2/depression/ptsd: recently started on lamictal (5 weeks ago), as above lamictal discontinued, doing well currently # IP status Subjective: no significant overnight events, feels a bit better today and notes rash seems to be improving Objective: Vital Signs Temp Pulse Resp BP Pulse Ox 37.7 C 107 H 16 113/44 L 95 02/09/17 11:26 02/09/17 11:26 02/09/17 11:26 02/09/17 11:26 02/09/17 11:26 Laboratory Results 02/09/17 06:00 02/09/17 06:00 02/08/17 02/09/17 02/10/17 05:59 05:59 05:59 Intake Total 1661 3320 Output Total 31 275 Balance 1630 3045 awake alert nad anicteric posterior pharyngeal erythema, several small lesions adjacent to the gums below lower lip mildly tachy, regular, no mrg cta b soft nt nd no cce warm dry diffuse confluent maculopapular rash covering whole body oriented appropriate ICD10 Worksheet Patient Problems: Problems Problem Status Onset Viral syndrome Acute
--- NOTE | 2017-02-09 15:45 | PCMIDPN ---
Assessment/Plan: Assessment/Plan: 1. Fever, sorethroat, rash, headaches, elevated LFT's : -rash better today. no evolution to blisters, bullae, or desquamation -LFt's better -no eye involvement -d/d viral vs drug related possibly to Lamictal. Given unable to reliably prove viral etiology would not recommend restarting lamictal and she should be switched to different agent. -continue close observation -CMV and syphillis neg. ebv reflective of past exposure. reviewed results with patient. -hiv neg 2. CSF leak -s/p blood patch yesterday with improved symptoms. Subjective: intermittent fevers with chills. feels better overall compared to yesteday. rash less prominent and starting to fade. denies sob, abd pain or diarrhea. no new mouth issues or changes. no oral ulcers. less headache but still intermittently present ,mostly on right frontotemporal region.no visual complaints. less dizziness ocmpared to yesterday.no further back pain. no further vomiting. Objective: Vital Signs Temp Pulse Resp BP Pulse Ox 37.7 C 107 H 16 113/44 L 95 02/09/17 11:26 02/09/17 11:26 02/09/17 11:26 02/09/17 11:26 02/09/17 11:26 Laboratory Results 02/09/17 06:00 02/09/17 06:00 02/08/17 02/09/17 02/10/17 05:59 05:59 05:59 Intake Total 1661 3320 Output Total 31 275 Balance 1630 3045 - Physical Exam General Appearance: alert, no apparent distress EENT: other (petechia in posterior pharynx. no oral ulcers. minimal stable changes on inner lip. ), No thrush Respiratory: lungs clear Cardiac/Chest: regular rate, rhythm Extremities: No swelling Abdomen: normal bowel sounds, non-tender, soft, No distended Skin: rash (all over body, less prominent, less coalesced today. no bullae, blisters, vesicles, or desquamation noted. ) ICD10 Worksheet Patient Problems: Problems Problem Status Onset Viral syndrome Acute
[2017-02-09] MEDS: diphenhydrAMINE 25 MG CAP PO PRN (18:43)
[2017-02-09] MEDS: LORazepam 0.5 MG TAB PO PRN (21:03)
[2017-02-10] MEDS: ACETAMINOPHEN 325 MG TAB PO PRN (04:22)
[2017-02-10] MEDS: NS 1,000 ML IV SCH (04:24)
[2017-02-10] MEDS: ONDANSETRON 4 MG/2 ML VIAL IVP PRN (05:27)
[2017-02-10 08:18] VITALS: BP 96/48; PULSE 90; RESP 16; TEMP 98.6; O2SAT 94
[2017-02-10] MEDS: Norgestimate-Ethinyl Estradiol [Sprintec 28 Day Tablet] PO SCH (08:25)
[2017-02-10] MEDS: buPROPion SR 150 MG TAB PO SCH (08:25)
--- NOTE | 2017-02-10 10:19 | PCMIDPN ---
Assessment/Plan: Assessment: Viral syndrome-verses Lamictal allergy. Favor the former diagnosis over the latter. Although the only way to prove this would be to reintroduce Lamictal either in systemic form or subdermally through an client service manager office. Regardless the patient is clinically improved enough to convalescent home. She does not need any antibiotics. All serologic testing was negative apart from EBV panel which indicated prior exposure. Plan: 1. No antibiotics. 2. Discharged to home. Patient will convalesce with parents in [place]. 02/10/17 10:16 Subjective: Patient resting comfortably in her hospital bed. She notes that her rash is improving. She also notes that her headache and back pain have increased. No fevers or chills. Objective: No antibiotics Vital Signs Temp Pulse Resp BP Pulse Ox 37 C 90 16 96/48 L 94 02/10/17 08:00 02/10/17 08:00 02/10/17 08:00 02/10/17 08:00 02/10/17 08:00 Laboratory Results 02/09/17 06:00 02/09/17 06:00 02/09/17 02/10/17 02/11/17 05:59 05:59 05:59 Intake Total 3320 3745 Output Total 275 Balance 3045 3745 - Physical Exam General Appearance: WD/WN, alert, no apparent distress, non-toxic Respiratory: lungs clear, normal breath sounds, No respiratory distress Cardiac/Chest: regular rate, rhythm, No tachycardia Skin: normal color, warm/dry, rash Neuro/Psych: alert, normal mood/affect, oriented x 3 ICD10 Worksheet Patient Problems: Problems Problem Status Onset Viral syndrome Acute
--- NOTE | 2017-02-10 10:25 | PDDCSUM ---
Discharge Summary Discharge Summary: Dates of service 02/07-02/10/17 Consultations: ID Procedures performed: lumbar puncture Hospital course by problem: # diffuse maculopapular rash: with some involvement of oral mucosa and differential including viral syndrome versus drug rash or less likely Cohn Faisal syndrome--no bullae or areas of desquamation etc. Rash and oral lesions continue to improve slowly, non toxic appearing, plan is for discharge to home, no abx, continue to hold lamictal. # PALACIOS/n/v: suspect csf leak in setting of recent LP, blood patch applied and sxs improved # fever: has been afebrile x 24 hours, was having very low grade temperature elevations, in setting of viral illness versus drug reaction # leukocytosis: in setting of above, viral syndrome versus stress response # transaminitis: slight elevation in lfts improving since arrival, suspect related to viral syndrome # bipolar 2/depression/ptsd: recently started on lamictal (5 weeks ago), as above lamictal discontinued, doing well currently, would not resume lamictal at this time given sxs as above DC home and will f/u with PCP in versus with ID > 35 minutes spent in dc, more than half in coordination of care
[2017-02-10] MEDS: IBUPROFEN 200 MG TAB PO PRN (12:44)
[2017-02-10] MEDS: ONDANSETRON DISINTEGRATING 4 MG TAB PO PRN (13:10)
--- NOTE | 2017-02-10 16:37 | ASDISCHSUM ---
Discharge Information Plan Status:Home with No Needs Medically Cleared to Leave:02/09/2017 Discharge Date:02/10/2017 02:40 PM CM D/C Disposition: ADT D/C Disposition:Home, Routine, Self-Care Projected Discharge Date:02/10/2017 12:00 AM Transportation at D/C: Discharge Delay Reason: Follow-Up Date:02/10/2017 12:00 AM Discharge Slot: Final Diagnosis: Placement Information Patient Contact Information Contact Name:RENAN Relationship:Mother Address:[address] Work Phone: City:[place] Alternate Phone: [facility]/Zip Code:[place] [address] Email: Financial Information Financial Class:HMO and PPO Plans Primary Plan Desc:[employer] Primary Plan Number:[id number] Secondary Plan Desc: Secondary Plan Number: Assessment Information LACE LACE Length of stay for Answers: Less than 1 day current admission Acuity / Level of Care Answers: Was the patient admitted to hospital via the emergency department? Yes: Emergency dept visits in Answers: 2 last 6 months Score: 5 Date Signed: 02/07/2017 01:31 PM Electronically Signed By:Sharon Telles LCSW [facility] CM Progress Note CM Note CM Note Notes: Pt has been admitted with fever, rash, PALACIOS, neck pain. ID following. Cultures are pending. Pt is a [employer] student and has a hx of Bipolar d/o, PTSD, depression. Currently not on any ABX. Anticipate d/c with no CM needs but CM will continue to follow for any unanticipated needs. Date Signed: 02/07/2017 04:05 PM Electronically Signed By:TOSHIA Frye Intervention Information
== END 2017-02-10 14:40 | disposition home or self-care (01) | DRG 866 ==
LOC: OBSVTOIN 15:04 → F3E 15:09
PROVIDERS: ADMIT Family Medicine; ATTEND Family Medicine
DX: B34.9 Viral infection, unspecified (principal); L27.0 Generalized skin eruption due to drugs and medicaments taken internally; T42.6X5A Adverse effect of other antiepileptic and sedative-hypnotic drugs, initial encounter; G97.0 Cerebrospinal fluid leak from spinal puncture; R74.0 Nonspecific elevation of levels of transaminase and lactic acid dehydrogenase [LDH]; F31.81 Bipolar II disorder; F43.12 Post-traumatic stress disorder, chronic; J45.909 Unspecified asthma, uncomplicated
CPT/HCPCS: 86644-90; 86645-90; 86664-90; 86665-90; C1751; J1170; J2060; J2405; Q9967